=== PATIENT | male | born 1965 | race Caucasian/White ===

== ENCOUNTER 2022-08-04 16:49 | Emergency (ER) | payer OTHER ==
[~2022-08-04] VITALS: Ht 180.3 cm; Wt 95.5 kg
[2022-08-04 17:07] VITALS: BP 168/86
[2022-08-04] MEDS ORDERED: INSU100V9 SQ (19:13)
[2022-08-04] MEDS ORDERED: INSU100I45 SQ (19:13)
== END 2022-08-04 19:51 | disposition home or self-care (01) ==
LOC: ER 16:50
DX: E11.9 Type 2 diabetes mellitus without complications (principal); Z76.0 Encounter for issue of repeat prescription; F17.200 Nicotine dependence, unspecified, uncomplicated; Z72.89 Other problems related to lifestyle; Z60.2 Problems related to living alone; Z88.8 Allergy status to other drugs, medicaments and biological substances
CPT/HCPCS: 82948; 99282

== ENCOUNTER 2023-07-17 16:46 | Emergency (ER) | payer OTHER, BC, MEDICAID ==
[~2023-07-17] VITALS: Ht 190.5 cm; Wt 104.5 kg
[~2023-07-17 16:46] MED LIST: INSU100I61 SQ; INSU100V9 SQ
[2023-07-17] MEDS ORDERED: LANTUS SUBCUT (19:21)
[2023-07-17] MEDS ORDERED: INSU100V11 SQ (19:21)
[2023-07-17] MEDS ORDERED: HYDR-3965 PO (19:23)
[2023-07-17] MEDS ORDERED: METH-798 PO (19:23)
[2023-07-17] MEDS: ketorolac trometh. 30mg/ml inj. IM ONE (20:06)
[2023-07-17 20:16] VITALS: BP 140/84; PULSE 96; RESP 20; TEMP 97.8; O2SAT 98
[2023-07-17] MEDS ORDERED: SYRI-641 SUBCUT (20:30)
== END 2023-07-17 20:20 | disposition home or self-care (01) ==
LOC: ER 16:47
DX: R07.89 Other chest pain (principal); E11.69 Type 2 diabetes mellitus with other specified complication
CPT/HCPCS: 71111; 96372; 99283; J1885